=== PATIENT | male | born 1980 | race Two or more races ===

== ENCOUNTER 2024-07-19 21:48 | Emergency (ER) | payer MEDICAID, OTHER ==
[~2024-07-19] VITALS: Ht 167.6 cm; Wt 86.5 kg
[2024-07-19 21:57] VITALS: O2SAT 100
[2024-07-19 23:50] VITALS: TEMP 36.66960
[2024-07-20 00:12] LABS: CHLORIDE 108 mEq/L (98-107); POTASSIUM 3.7 mEq/L (3.5-5.1); SODIUM 137 mEq/L (136-145)
[2024-07-20 00:13] LABS: CALCIUM 9.4 mg/dL (8.7-10.4); CARBON DIOXIDE 25 mEq/L (21-32)
[2024-07-20 00:14] LABS: BASOPHILS % 0.4 % (0.0-2.0); EOSINOPHILS % 0.5 % (0.0-5.0); HEMATOCRIT. 40.8 % (42.0-52.0); HEMOGLOBIN. 13.1 g/dL (14.0-18.0); LYMPHOCYTES % 11.8 % (20.0-50.0); MEAN CORPUSCULAR HEMOGLOBIN 28.9 pg (28.0-32.0); MEAN CORPUSCULAR VOLUME 90.2 fL (80.0-94.0); MEAN PLATELET VOLUME 8.9 fl (7.4-10.4); MONOCYTES % 4.3 % (2.0-8.0); PLATELET 273 x1000/uL (130-400); RED BLOOD CELL COUNT 4.52 mill/uL (4.7-6.1); RED CELL DISTRIBUTION WIDTH 17.6 % (11.6-14.6); WHITE BLOOD COUNT 10.6 x1000/uL (4.5-11.0)
[2024-07-20 00:18] LABS: CREATININE 0.8 mg/dL (0.6-1.3); GLUCOSE 133 mg/dL (70-105); UREA NITROGEN BLOOD 13 mg/dL (9-23)
[2024-07-20 00:20] LABS: ALANINE AMINOTRANSFERASE 30 IU/L (10-49); ALBUMIN 4.7 g/dL (3.2-4.8); ASPARTATE AMINOTRANSFERASE 32 IU/L (<34); BILIRUBIN DIRECT 0.2 mg/dL (<=3.0); BILIRUBIN TOTAL 0.6 mg/dL (0.1-1.0); PROTEIN TOTAL 7.6 g/dL (6.0-8.3)
[2024-07-20] MEDS: MORPHINE SULFATE 4 MG/ML INJ (FOR IV/IM USE) IV ONE (00:35)
[2024-07-20] MEDS: SODIUM CHLORIDE 0.9% 1,000 ML IV ONE (00:36)
[2024-07-20] MEDS: ONDANSETRON HCL 4MG/2ML INJ IV ONE (00:36)
[2024-07-20] MEDS: IOHEXOL-300 100 ML BOTTLE ONE (02:03)
[2024-07-20] MEDS ORDERED: HYDR-4001 MT (03:33)
[2024-07-20] MEDS ORDERED: IBUP-2029 MT (03:33)
[2024-07-20 04:12] VITALS: BP 113/67; PULSE 61; RESP 14; O2SAT 100
== END 2024-07-20 04:31 | disposition home or self-care (01) ==
LOC: ER 21:48
DX: S42.031A Displaced fracture of lateral end of right clavicle, initial encounter for closed fracture (principal); S22.31XA Fracture of one rib, right side, initial encounter for closed fracture; R51.9 Headache, unspecified; Z00.00 Encounter for general adult medical examination without abnormal findings; V23.49XA Other motorcycle driver injured in collision with car, pick-up truck or van in traffic accident, initial encounter; Y93.89 Activity, other specified; Y92.89 Other specified places as the place of occurrence of the external cause; Y99.8 Other external cause status
CPT/HCPCS: 80076; 80048; 85025; 36415; 73502; 73030; 29240; 99285; 73000; 70450; 71250; 74177; 96361; 96374; 96375; Q9967; J2405; J2270; Z7610 ×3